=== PATIENT | male | born 1970 | race Hispanic/Latino ===

== ENCOUNTER 2020-12-17 04:15 | Emergency (ER) | payer MEDICARE ==
[2020-12-17] MEDS ORDERED: METHadone HCl 10 MG TAB PO SCH (06:15)
== END 2020-12-17 06:47 | disposition home or self-care (01) ==
LOC: CSHERS 04:15
DX: G90.512 Complex regional pain syndrome I of left upper limb (principal); I10 Essential (primary) hypertension; F17.210 Nicotine dependence, cigarettes, uncomplicated; Z79.899 Other long term (current) drug therapy
CPT/HCPCS: 99283

== ENCOUNTER 2023-02-06 18:06 | Emergency (ER) | payer MEDICARE ==
[2023-02-06] MEDS ORDERED: Morphine 4 MG/ML VIAL ONE (18:49)
== END 2023-02-06 18:56 | disposition home or self-care (01) ==
LOC: CSHERS 18:06
DX: G89.29 Other chronic pain (principal); M79.602 Pain in left arm; M79.642 Pain in left hand; I10 Essential (primary) hypertension; F17.210 Nicotine dependence, cigarettes, uncomplicated
CPT/HCPCS: 96372; 99283; J2270

== ENCOUNTER 2023-02-18 15:37 | Emergency (ER) | payer MEDICARE ==
[2023-02-18] MEDS ORDERED: METHadone HCl 10 MG TAB PO SCH (16:45)
== END 2023-02-18 16:48 | disposition home or self-care (01) ==
LOC: CSHERS 15:37
DX: G89.29 Other chronic pain (principal); M79.642 Pain in left hand; M79.671 Pain in right foot; I10 Essential (primary) hypertension; F17.210 Nicotine dependence, cigarettes, uncomplicated
CPT/HCPCS: 99283

== ENCOUNTER 2023-03-11 14:31 | Emergency (ER) | payer MEDICARE ==
[2023-03-11] MEDS ORDERED: METHadone HCl 10 MG TAB PO SCH (16:00)
== END 2023-03-11 16:21 | disposition home or self-care (01) ==
LOC: CSHERS 14:31
DX: G89.29 Other chronic pain (principal); M79.602 Pain in left arm; M79.662 Pain in left lower leg; M79.661 Pain in right lower leg; I10 Essential (primary) hypertension; F17.210 Nicotine dependence, cigarettes, uncomplicated; Z76.0 Encounter for issue of repeat prescription
CPT/HCPCS: 99283

== ENCOUNTER 2025-02-08 01:50 | Emergency (ER) | payer MEDICARE ==
[2025-02-08 02:23] LABS: Glucose, Urine (Dipstick) Normal (Negative); Leukocyte Negative (Negative); Protein, Urine (Dipstick) Negative (Neg-Trace); Specific Gravity, Urine 1.005 (1.005-1.030)
[2025-02-08 02:30] LABS: Bacteria/HPF None Seen HPF (None Seen); CAUTI Indications for Culture Pelvic or flank pain; RBC/HPF None Seen HPF (0-3); WBC/HPF None Seen HPF (0-3)
[2025-02-08 02:31] LABS: Urine Culture Reflex No No
== END 2025-02-08 02:30 ==
LOC: CSHERS 01:50
DX: Z53.21 Procedure and treatment not carried out due to patient leaving prior to being seen by health care provider (principal)
CPT/HCPCS: 81001